=== PATIENT | female | born 1960 | race African-American/Black ===

== ENCOUNTER 2016-07-05 15:15 | Emergency (ER) | payer BC, OTHER ==
[~2016-07-05] VITALS: Ht 160 cm; Wt 78.0 kg
[2016-07-05 15:36] VITALS: BP 131/78
[2016-07-05] MEDS ORDERED: NKM (15:41)
[2016-07-05] MEDS ORDERED: IBUPROFEN600 MG ORAL (16:33)
[2016-07-05] MEDS ORDERED: HYDROCHLOROTHIA25 MG ORAL (16:44)
[2016-07-05 16:46] VITALS: BP 125/75
[2016-07-05 16:48] VITALS: BP 125/75
--- NOTE | 2016-07-05 21:13 | Emergency Room Report ---
History of Present Illness General Chief Complaint: Pain Source: Patient Present Illness HPI The patient is a 56-year-old female with a history of right lower leg ORIF presenting for right knee pain which began yesterday. The patient states that she has begun a new job which is physically demanding and she has been walking and bending down more than usual. The patient noticed pain to the right knee as an 8/10 dull ache it does not radiate. The patient denies any trauma to the knee or falling. The patient denies other symptoms including numbness/tingling , N, V, F, chills, rash Allergies: Coded Allergies: MORPHINE (Verified Allergy, Unknown, 07/05/16) Patient History Past Medical History: see triage record Past Surgical History: other - R lower leg Reviewed Nursing Documentation: PMH: Agreed, PSxH: Agreed Nursing Documentation-PMH Past Medical History: No History, Except For Review of Systems All Other Systems: negative except mentioned in HPI Physical Exam Vital Signs Date Time Temp Pulse Resp B/P Pulse Ox O2 Delivery O2 Flow Rate FiO2 07/05/16 15:36 98.8 99 16 131/78 99 Room Air Sp02 EP Interpretation: reviewed, normal General Appearance: no apparent distress, alert, GCS 15, non-toxic Head: normocephalic, atraumatic Eyes: bilateral eye PERRL, bilateral eye normal inspection Respiratory: chest non-tender, lungs clear, normal breath sounds, speaking full sentences Cardiovascular #1: regular rate, rhythm, no edema Musculoskeletal: normal range of motion, no calf tenderness, swelling - 1+ non pitting edema to bilat lower legs, tender - TTP over anterior knee Neurologic: alert, oriented x3, responsive, motor strength/tone normal, sensory intact, normal gait, speech normal Psychiatric: judgement/insight normal, memory normal, mood/affect normal, no suicidal/homicidal ideation Reflexes: 3+ bicep (R), 3+ bicep (L), 3+ tricep (R), 3+ tricep (L), 3+ knee (R) , 3+ knee (L) Skin: normal color, no rash, warm/dry, well hydrated Lymphatic: no adenopathy Medical Decision Making PA Attestation Dr. Harmon is my supervising physician. Patient management was discussed with my supervising physician Diagnostic Impression: Primary Impression: Strain of right knee ER Course The patient is a 56-year-old female presenting for R knee pain Ddx considered include but not limited to sprain/strain, fracture, contusion Physical exam: Vitals are within normal limits. No apparent distress Right leg: Surgical scars are seen. There is tenderness to palpation over the anterior knee. Full active range of motion. Sensation intact to light-touch. No edema to the knee. No erythema. No calf tenderness. There is 1+ non pitting edema to bilat lower legs. X-ray of the knee is unremarkable. Hardware is in place. The patient was given Motrin for pain and will be discharged with the same medications. The pt states she needs refill of HCTZ for leg edema. ER precautions are given and pt will FU with PMD Other X-Ray Diagnostic Results Other X-Ray Diagnostic Results : X-Ray Ordered: R knee Date: Jul 05, 2016 EP Interpretation: Yes Findings: no fractures, no dislocation, no soft tissue swelling Number of Views: 3 PA Scribe Text I am acting as scribe for my supervising physician. My supervising physician's interpretation of the R knee xrays are there are no fractures, dislocations or soft tissue swelling. Last Vital Signs Date Time Temp Pulse Resp B/P Pulse Ox O2 Delivery O2 Flow Rate FiO2 07/05/16 16:49 98.1 07/05/16 16:48 90 14 125/75 100 Room Air Status: improved Disposition: HOME, SELF-CARE Condition: Improved Scripts Hydrochlorothiazide* (HYDROCHLOROTHIAZIDE*) 25 Mg Tablet 25 MG ORAL DAILY, #7 TAB Prov: TERZIAN,ALMA P.A. 07/05/16 Ibuprofen* (MOTRIN*) 600 Mg Tablet 600 MG ORAL Q8H Y for For Pain, #30 TAB 0 Refills Prov: TERZIAN,ALMA P.A. 07/05/16 Referrals: [facility],REFERRING (PCP) Patient Instructions: Knee Pain Additional Instructions: I discussed my findings with the patient. All questions and concerns have been answered. Treatment and medication compliance have been addressed. I advised the patient that they need to follow up with PMD in 3-5 days. Return to ED if pain remains or worsens, numbness or tingling occurs, new rash is noticed, fever is noticed, or if needed for any reason. Patient verbalized understanding of discharge instructions. TERDEENAAN,ALMA P.A. Jul 05, 2016 21:12
--- NOTE | 2016-07-06 10:07 | Diagnostic Imaging Report ---
Indication: PAIN Technique: 3 views of the right knee Comparison: None Findings:No acute fractures. No dislocations. Joint spaces are preserved. No suprapatellar effusion. Surgical hardware is seen in the proximal tibia Impression:Negative
== END 2016-07-05 16:48 | disposition home or self-care (01) ==
LOC: EMR 16:32
DX: S76.911A Strain of unspecified muscles, fascia and tendons at thigh level, right thigh, initial encounter (principal); X58.XXXA Exposure to other specified factors, initial encounter; Y93.9 Activity, unspecified; Y92.9 Unspecified place or not applicable; Z88.6 Allergy status to analgesic agent
CPT/HCPCS: 99284